=== PATIENT | female | born 1995 | race Two or more races ===

== ENCOUNTER 2017-05-11 15:45 | Emergency (ER) | payer MEDICAID ==
[~2017-05-11] VITALS: Ht 154.9 cm; Wt 54.3 kg
[~2017-05-11 15:45] MED LIST: CEPH-368 PO; HYDR50CA PO; OXYC1TAB7 PO
[2017-05-11 15:47] VITALS: BP 111/72
== END 2017-05-11 16:57 | disposition home or self-care (01) ==
LOC: ED 16:40
DX: S93.622A Sprain of tarsometatarsal ligament of left foot, initial encounter (principal); G89.11 Acute pain due to trauma; J45.909 Unspecified asthma, uncomplicated; Z87.891 Personal history of nicotine dependence; Z91.012 Allergy to eggs; W01.0XXA Fall on same level from slipping, tripping and stumbling without subsequent striking against object, initial encounter; Y93.89 Activity, other specified; Y92.89 Other specified places as the place of occurrence of the external cause; Y99.8 Other external cause status
CPT/HCPCS: 99284